=== PATIENT | male | born 1955 | race American Indian/Alaskan Native ===

== ENCOUNTER 2016-07-31 10:17 | Outpatient (CLI) | payer OTHER ==
--- NOTE | 2016-07-31 11:19 | XRay Report ---
LEFT SHOULDER RADIOGRAPHS INDICATION: Left shoulder pain. COMPARISON: None similar. FINDINGS: Frontal and Y views of the left shoulder, 3 projections demonstrate normal humeral head contour, well positioned against the glenoid. Normal acromioclavicular joint. Preserved scapular contour. Normal visualized soft tissues, left ribs and lung. CONCLUSION: No acute left shoulder radiographic abnormality, as described. Thank you for the opportunity to participate in this patient's care.
--- NOTE | 2016-07-31 11:21 | XRay Report ---
LEFT KNEE RADIOGRAPHS INDICATION: Knee pain. COMPARISON: None similar. FINDINGS: AP and overflexed lateral left knee radiographs demonstrate intact bony articulation. Patellofemoral narrowing though not excluded. No suprapatellar effusion. CONCLUSION: No acute left knee radiographic abnormality with patellofemoral degenerative changes questioned, as described. Please correlate. Thank you for the opportunity to participate in this patient's care.
--- NOTE | 2016-07-31 11:55 | XRay Report ---
CERVICAL SPINE, 5 views: History: Neck pain. Findings: Moderate to severe disc space narrowing and circumferential spurring is identified at C4-5, C5-6 and C6-7. The facet joints are within normal limits. There is no evidence for fracture, subluxation or bony lesion. The oblique images suggest mild to moderate neural foraminal narrowing at C5-6 and C6-7 bilaterally. If radicular symptoms are present, consider further evaluation with MRI cervical spine without contrast. Impression: Cervical spondylosis as described.
== END 2016-07-31 10:18 | disposition home or self-care (01) ==
LOC: XRAY 10:17
PROVIDERS: ATTEND Internal Medicine
DX: M47.892 Other spondylosis, cervical region (principal); M25.562 Pain in left knee; M25.512 Pain in left shoulder
CPT/HCPCS: 72050